=== PATIENT | female | born 1980 | race Caucasian/White ===

== ENCOUNTER 2018-05-08 14:26 | Emergency (ER) | payer BC ==
[~2018-05-08] VITALS: Ht 165.1 cm; Wt 104.5 kg
[2018-05-08 14:39] VITALS: BP 108/82; Ht 165.1 cm; Wt 104.5 kg
[2018-05-08] MEDS ORDERED: LITHIUM CARBON300 MG PO ×2 (14:42)
== END 2018-05-08 16:23 | disposition home or self-care (01) ==
LOC: D.ER 14:26
DX: S71.111A Laceration without foreign body, right thigh, initial encounter (principal); Y04.2XXA Assault by strike against or bumped into by another person, initial encounter; Y93.89 Activity, other specified; Y92.89 Other specified places as the place of occurrence of the external cause